=== PATIENT | female | born 1985 | race Hispanic/Latino ===

== ENCOUNTER 2024-03-19 11:33 | Emergency (ER) | payer OTHER, MEDICARE ==
[~2024-03-19] VITALS: Ht 167.6 cm; Wt 81.6 kg
[2024-03-19 12:00] VITALS: PULSE 64; RESP 18; TEMP 97.8; O2SAT 98
[2024-03-19] MEDS: KETOROLAC TROMETHAMINE 60 MG/2 ML VIAL IM ONE (12:38)
[2024-03-19] MEDS ORDERED: METHOCARBAMOL750 MG PO (12:39)
== END 2024-03-19 12:55 | disposition home or self-care (01) ==
LOC: ER 12:07
DX: M54.6 Pain in thoracic spine (principal); M54.50 Low back pain, unspecified; G89.29 Other chronic pain; M79.7 Fibromyalgia
CPT/HCPCS: 99282; J1885